=== PATIENT | female | born 1970 | race Caucasian/White ===

== ENCOUNTER → 2016-04-17 | Outpatient (CLI) | payer OTHER ==
[~2016-04-17] MED LIST: AMOXICILLIN875 MG PO; DOXYCYCLINE HY100 M5 PO; MUCINEX 60600 MG/TA1 PO; MULTIVITAMIN1 SGL PO; NO HOME MEDICATIONS; NORCO 325 MG-51 TA1 PO; NORCO 325 MG-51 TAB PO
== END ==
LOC: RAD 14:59
DX: M25.562 Pain in left knee (principal); M17.12 Unilateral primary osteoarthritis, left knee

== ENCOUNTER → 2016-11-18 | Outpatient (CLI) | payer OTHER ==
[2015-05-31 01:00] VITALS: BP 129/73
== END ==
LOC: RAD 12:34
DX: M25.572 Pain in left ankle and joints of left foot (principal); Z87.39 Personal history of other diseases of the musculoskeletal system and connective tissue

== ENCOUNTER → 2017-05-14 | Outpatient (CLI) | payer BC ==
[2015-05-31 01:00] VITALS: BP 129/73
== END ==
LOC: RAD 17:35
DX: M79.671 Pain in right foot (principal); M77.31 Calcaneal spur, right foot

== ENCOUNTER → 2017-07-16 | Outpatient (CLI) | payer BC ==
[2015-05-31 01:00] VITALS: BP 129/73
== END ==
LOC: RAD 09:58
DX: S82.841K Displaced bimalleolar fracture of right lower leg, subsequent encounter for closed fracture with nonunion (principal); M77.31 Calcaneal spur, right foot; Z88.5 Allergy status to narcotic agent; Z88.8 Allergy status to other drugs, medicaments and biological substances

== ENCOUNTER → 2017-09-25 | Outpatient (CLI) | payer BC ==
[2015-05-31 01:00] VITALS: BP 129/73
== END ==
LOC: LAB 14:08
DX: Z01.419 Encounter for gynecological examination (general) (routine) without abnormal findings (principal); N76.0 Acute vaginitis

== ENCOUNTER → 2017-10-16 | Outpatient (CLI) | payer BC ==
[2015-05-31 01:00] VITALS: BP 129/73
== END ==
LOC: MAMMO 10:37
DX: Z12.31 Encounter for screening mammogram for malignant neoplasm of breast (principal)

== ENCOUNTER → 2018-09-03 | Outpatient (CLI) | payer BC ==
[2015-05-31 01:00] VITALS: BP 129/73
[2018-09-03 10:25] LABS: EOS # 0.1 (0.04-0.40); EOS % 1.9 % (1.0-5.0); HEMATOCRIT 39.1 % (37.0-47.0); HEMOGLOBIN 12.6 g/dL (12.5-16.0); LYMPH# 1.9 (1.50-4.00); MEAN CELL VOLUME 85 fl (78-100); MEAN CORPUSCULAR HEMOGLOBIN 28 pg (27-31); MEAN CORPUSCULAR HGB CONC 32 g/dL (33-37); MEAN PLATELET VOLUME 8.9 fl (7.4-10.4); MONO # 0.4 (0.20-0.80); NEU # 2.9 (1.40-6.50); PLATELET COUNT 303 K/mm3 (130-400); RED BLOOD COUNT 4.59 M/mm3 (4.10-5.30); RED CELL DISTRIBUTION WIDTH 13.2 % (11.5-14.5); WHITE BLOOD COUNT 5.3 K/mm3 (4.8-10.8)
[2018-09-03 11:08] LABS: ALBUMIN 3.7 g/dL (3.5-5.0); CALCIUM 9.3 mg/dL (8.4-10.2); POTASSIUM 4.8 mmol/L (3.5-5.1); TOTAL BILIRUBIN 0.3 mg/dL (0.2-1.2); TOTAL PROTEIN 6.9 g/dL (6.4-8.3)
== END ==
LOC: LAB 10:13
PROVIDERS: Physician Assistant
DX: N93.9 Abnormal uterine and vaginal bleeding, unspecified (principal); R42 Dizziness and giddiness; R53.83 Other fatigue; R73.9 Hyperglycemia, unspecified

== ENCOUNTER → 2019-02-05 | Outpatient (CLI) | payer BC ==
[2015-05-31 01:00] VITALS: BP 129/73
== END ==
LOC: LAB 07:12
DX: E11.9 Type 2 diabetes mellitus without complications (principal)

== ENCOUNTER → 2019-03-01 | Outpatient (CLI) | payer BC ==
[2015-05-31 01:00] VITALS: BP 129/73
== END ==
LOC: LAB 10:39
DX: E11.9 Type 2 diabetes mellitus without complications (principal); R31.9 Hematuria, unspecified; B37.3 Candidiasis of vulva and vagina

== ENCOUNTER → 2019-05-13 | Outpatient (CLI) | payer BC ==
[2015-05-31 01:00] VITALS: BP 129/73
[2019-05-13 07:29] LABS: POTASSIUM 4.1 mmol/L (3.5-5.1)
[2019-05-13 07:30] LABS: CALCIUM 8.9 mg/dL (8.3-10.5)
== END ==
LOC: LAB 07:06
PROVIDERS: Physician Assistant
DX: E11.9 Type 2 diabetes mellitus without complications (principal); J01.90 Acute sinusitis, unspecified; J30.2 Other seasonal allergic rhinitis

== ENCOUNTER 2019-09-19 10:00 | Outpatient (RCR) | payer BC ==
[2015-05-31 01:00] VITALS: BP 129/73
== END 2019-09-19 10:30 | disposition still patient (30) ==
LOC: PT 10:00
DX: S46.911A Strain of unspecified muscle, fascia and tendon at shoulder and upper arm level, right arm, initial encounter (principal)

== ENCOUNTER → 2019-09-29 | Outpatient (CLI) | payer BC ==
[2015-05-31 01:00] VITALS: BP 129/73
[2019-09-29 13:34] LABS: POTASSIUM 4.2 mmol/L (3.5-5.1)
[2019-09-29 13:35] LABS: CALCIUM 8.6 mg/dL (8.3-10.5)
== END ==
LOC: LAB 10:18
PROVIDERS: Physician Assistant
DX: E11.9 Type 2 diabetes mellitus without complications (principal); J01.90 Acute sinusitis, unspecified; J30.2 Other seasonal allergic rhinitis

== ENCOUNTER → 2019-12-31 | Outpatient (CLI) | payer BC ==
[2015-05-31 01:00] VITALS: BP 129/73
== END ==
LOC: RAD 15:43
DX: M17.12 Unilateral primary osteoarthritis, left knee (principal)

== ENCOUNTER → 2020-01-28 | Outpatient (CLI) | payer BC ==
[2015-05-31 01:00] VITALS: BP 129/73
[2020-01-28 17:05] LABS: ALBUMIN 3.9 g/dL (3.5-5.0)
[2020-01-28 17:07] LABS: CALCIUM 8.9 mg/dL (8.3-10.5)
[2020-01-28 17:10] LABS: TOTAL BILIRUBIN 0.2 mg/dL (0.2-1.2)
[2020-01-28 17:13] LABS: DIRECT BILIRUBIN 0.1 mg/dL (0.0-0.5)
== END ==
LOC: LAB 16:38
PROVIDERS: Physician Assistant
DX: E11.9 Type 2 diabetes mellitus without complications (principal); D64.9 Anemia, unspecified; B35.1 Tinea unguium

== ENCOUNTER → 2020-09-28 | Outpatient (CLI) | payer BC ==
[2020-09-28 08:38] LABS: BASO # 0.03 (0.02-0.10); EOS # 0.14 (0.04-0.40); EOS % 1.5 % (1.0-5.0); HEMATOCRIT 39.6 % (37.0-47.0); HEMOGLOBIN 12.8 g/dL (12.5-16.0); LYMPH# 2.46 (1.50-4.00); MEAN CELL VOLUME 86 fl (78-100); MEAN CORPUSCULAR HEMOGLOBIN 28 pg (27-31); MEAN CORPUSCULAR HGB CONC 32 g/dL (33-37); MEAN PLATELET VOLUME 9.1 fl (7.4-10.4); MONO # 0.46 (0.20-0.80); NEU # 5.97 (1.40-6.50); PLATELET COUNT 293 K/mm3 (130-400); RED BLOOD COUNT 4.61 M/mm3 (4.10-5.30); RED CELL DISTRIBUTION WIDTH 12.6 % (11.5-14.5); WHITE BLOOD COUNT 9.1 K/mm3 (4.8-10.8)
[2020-09-28 08:48] LABS: ALBUMIN 3.8 g/dL (3.5-5.0); POTASSIUM 4.5 mmol/L (3.5-5.1)
[2020-09-28 08:50] LABS: CALCIUM 8.9 mg/dL (8.3-10.5)
[2020-09-28 08:53] LABS: TOTAL BILIRUBIN 0.3 mg/dL (0.2-1.2)
== END ==
LOC: LAB 08:19
PROVIDERS: Physician Assistant
DX: Z00.00 Encounter for general adult medical examination without abnormal findings (principal); Z13.29 Encounter for screening for other suspected endocrine disorder; E11.9 Type 2 diabetes mellitus without complications

== ENCOUNTER → 2021-01-15 | Outpatient (CLI) | payer BC | LOC: LAB 09:16 | DX: Z20.822 Contact with and (suspected) exposure to COVID-19 (principal) ==

== ENCOUNTER → 2021-06-02 | Outpatient (CLI) | payer BC ==
[2021-06-02 14:22] LABS: POTASSIUM 3.9 mmol/L (3.5-5.1)
[2021-06-02 14:23] LABS: CALCIUM 9.2 mg/dL (8.3-10.5)
== END ==
LOC: LAB 14:04
PROVIDERS: Physician Assistant
DX: E11.9 Type 2 diabetes mellitus without complications (principal)

== ENCOUNTER → 2021-09-23 | Outpatient (CLI) | payer BC ==
[2021-09-23 11:17] LABS: POTASSIUM 4.1 mmol/L (3.5-5.1)
[2021-09-23 11:18] LABS: CALCIUM 9.3 mg/dL (8.3-10.5)
== END ==
LOC: LAB 10:58
PROVIDERS: Physician Assistant
DX: E11.9 Type 2 diabetes mellitus without complications (principal)

== ENCOUNTER → 2022-02-03 | Outpatient (CLI) | payer BC ==
[2022-02-03 16:26] LABS: CLUE CELLS NOT OBSERVED (Not Observd)
== END ==
LOC: LAB 16:14
PROVIDERS: Nurse Practitioner Family
DX: R30.0 Dysuria (principal); M62.830 Muscle spasm of back; M54.50 Low back pain, unspecified
CPT/HCPCS: Q0111

== ENCOUNTER → 2023-01-26 | Outpatient (CLI) | payer BC | LOC: RAD 11:19 | DX: S90.31XA Contusion of right foot, initial encounter (principal); X58.XXXA Exposure to other specified factors, initial encounter ==